=== PATIENT | male | born 1960 | race Caucasian/White ===

== ENCOUNTER 2019-04-28 14:35 | Observation (INO) ==
[2019-04-28] MEDS ORDERED: NITROGLYCERIN SL PRN (14:55)
[2019-04-28] MEDS ORDERED: ASPIRIN EC PO ONE (14:55)
[2019-04-28 15:36] LABS: BASO# 0.13 X1000 (0.0-0.2); BASO% 0.7 % (0.0-0.8); EOS# 0.68 X1000 (0.0-0.7); EOS% 3.7 % (0.0-10.0); HEMATOCRIT 48.6 % (42.0-52.0); HEMOGLOBIN 16.5 g/dL (14.0-18.0); IMM GRAN# 0.04 X1000 (0.0-0.04); IMM GRAN% 0.2 % (0.0-0.5); LYMPH# 3.61 X1000 (1.2-3.4); LYMPH% 19.9 % (20.5-51.1); MCH 30.7 PG (27-31); MCV 90.5 FL (81-99); MONO# 2.94 X1000 (0.11-0.59); MONO% 16.2 % (1.7-9.3); MPV 9.9 FL (7.4-10.4); NEUT# 10.74 X1000 (1.4-6.5); NEUT% 59.3 % (42.2-75.2); PLT 470 X1000 (130-400); RBC 5.37 XMIL (4.7-6.1); RDW 15.6 % (11.5-14.5); WBC 18.14 X1000 (4.8-10.8)
[2019-04-28 15:38] LABS: INR 1.03; PROTIME 13.6 Seconds (11.0-16.0)
[2019-04-28 15:39] LABS: PTT 25.8 Seconds (22.3-41.8)
--- NOTE | 2019-04-28 15:47 | Diag Imaging Result Doc PS360 ---
EXAM: CHEST-1 VIEW HISTORY: cp TECHNIQUE: Single view COMPARISON: None. FINDINGS: The lungs are well expanded. The heart is not enlarged. The vessels are not distended. There are small basilar infiltrates. Tiny left pleural effusion. IMPRESSION: Small basilar infiltrates with a tiny left effusion Electronically signed by Miguel Ga 04/28/2019 3:45 PM
[2019-04-28 15:52] LABS: AGAP 14; ALB/GLOB RATIO 1.5; ALBUMIN 3.9 g/dL (3.5-5.0); ALKALINE PHOSPHATASE 92 U/L (32-122); BUN 14 mg/dL (8-22); CALCIUM 9.1 mg/dL (8.8-10.2); CHLORIDE 101 mmol/L (98-107); COSMO 283; ESTIMATED GFR > 60; GLUCOSE 90 mg/dL (70-104); GOT 18 U/L (10-34); GPT 23 U/L (10-44); POTASSIUM 3.1 mmol/L (3.5-5.1); SODIUM 142 mmol/L (136-145); TCO2 27 mmol/L (25-35); TOTAL BILIRUBIN 0.53 mg/dL (0.20-1.00); TOTAL PROTEIN 6.5 g/dL (6.3-8.3)
[2019-04-28] MEDS ORDERED: LEVAQUIN 500 MG/D5W 500 MG/100 ML IVPB IV ONE (16:23)
--- NOTE | 2019-04-28 16:37 | EKG Report ---
Test Performed on : 04/28/2019 2:38:59 PM Test Reason : cp Blood Pressure : / mmHG Vent. Rate : 066 BPM Atrial Rate : 066 BPM P-R Int : 188 ms QRS Dur : 094 ms QT Int : 410 ms P-R-T Axes : 028 -45 027 degrees QTc Int : 429 ms Normal sinus rhythm. Possible Left atrial enlargement Left anterior fascicular block Abnormal ECG No previous ECGs available Unconfirmed Result
[2019-04-28] MEDS ORDERED: TYLENOL PO PRN (16:57)
[2019-04-28] MEDS ORDERED: ZOFRAN IV PRN (16:57)
[2019-04-28] MEDS ORDERED: DUONEB (A & A) INH PRN (17:00)
[2019-04-28] MEDS ORDERED: NICODERM PATCH TD PRN (17:00)
[2019-04-28] MEDS ORDERED: LOVENOX SUBQ SCH (17:00)
--- NOTE | 2019-04-28 17:06 | PROVIDER DOCUMENTATION ---
This chart was entered by Jeanette Logan Scribe, acting as scribe for Jewel Navarrete MD. HPI-Chest Pain - General Chief Complaint: Chest Pain Stated Complaint: CHEST PAIN, RADIATES INTO (L) ARM Time Seen by Provider: 04/28/19 14:55 Source: patient Allergies/Adverse Reactions: Patient Allergies Allergy/AdvReac Type Severity Reaction Status Date / Time No Known Allergies Allergy Verified 04/28/19 15:05 Home Medications: Home Medication List Medication Instructions Recorded Confirmed Last Taken Type Valsartan 80 mg PO DAILY 04/28/19 04/28/19 Unknown History - History of Present Illness-CP Nature of Presenting Problem: 59yom presents to ED cc left side chest pain, pressure and left arm numbness since yesterday. Pt rates pain 410 and reports he went to [facility] and was advised to come to ED due to symptoms and b/p being elevated.Pt reports he has hx of HTN but stopped taking med b/c they made him feel weird. Pt b/p is 177/111 upon exam. Pt denies N/V/SOB. Location: reports: other (left side) Quality of Pain: reports: tightness Severity in ED: mild (10) Onset/Duration: 24 hours ago Timing: still present Context/Activities at Onset: reports: light activity Modifying Factors: improves with: nothing Associated Symptoms: reports: denies symptoms Nitro Today/Relief: no nitro taken today Aspirin Treatment Today: no aspirin today Prior Chest Pain/Cardiac Workup: reports: no prior chest pain Similar Symptoms Previously?: Yes Recently Seen Here or By Another Healthcare Provider: Yes (was seen at [facility] in ED) Review of Systems - Adult - REVIEW OF SYSTEMS - ADULT Constitutional: reports: see HPI. denies: chills, fever, fatique Eyes: reports: no symptoms reported Ears, Nose, Mouth & Throat: reports: no symptoms reported Cardiovascular: reports: see HPI, chest pain. denies: palpitations Respiratory: reports: see HPI. denies: shortness of breath Gastrointestinal: reports: see HPI. denies: diarrhea, nausea, vomiting Genitourinary: reports: no symptoms reported Musculoskeletal: reports: no symptoms reported Integumentary: reports: no symptoms reported Neurological: reports: see HPI, numbness (left arm) Psychiatric: reports: no symptoms reported Endocrine: reports: no symptoms reported Hematologic/Lymphatic: reports: no symptoms reported Allergic/Immunologic: reports: no symptoms reported All Other Systems: Reviewed and Negative Past History - Adult - PAST MEDICAL HISTORY-ADULT Review of Records: reports: Nursing Assessment Review, Medications Reviewed, Social history reviewed & non-contributory. Major Childhood Illnesses: reports: denies history Cardiovascular: reports: HTN, hyperlipidemia Respiratory: reports: denies history Gastrointestinal: reports: denies history Obstetrical/Gynecological: reports: denies history Genitourinary: reports: denies history Musculoskeletal: reports: denies history Neurological: reports: denies history Endocrine/Immune: reports: denies history Other Conditions: reports: denies history - IMMUNIZATION STATUS Childhood Immunizations: See Nurse Assessment Flu Vaccine: See Nurse Assessment - FAMILY HISTORY Family History: reviewed, not pertinent - SOCIAL HISTORY Smoking: cigarettes, greater than 1 pack/day Provider spent 3-5 mins advising pt. on dangers of tobacco.: Discussed manners to quit use, and f/u contacts for add'l counseling. Physical Exam-General - PHYSICAL EXAM-ADULT Initial Vital Signs Reviewed: Yes - CONSTITUTIONAL General Appearance: appears well, alert, no apparent distress. negative: anxious, combative - EYES Eyes: PERRL/EOMI, pink conjunctivae. negative: photophobia - HEAD, EARS, NOSE, MOUTH & THROAT HENMT: normocephalic/atraumatic, moist mucous membranes. negative: angioedema - NECK Neck: normal inspection - RESPIRATORY Respiratory: chest non-tender, lungs clear, normal breath sounds. negative: wheezing - CARDIOVASCULAR Cardiovascular: normal peripheral pulses, regular rate, rhythm, no edema. negative: bradycardia, tachycardia - GASTROINTESTINAL (ABDOMEN) Abdominal Exam: normal bowel sounds, non tender, soft. negative: rebound - MUSCULOSKELETAL Extremity: normal inspection. negative: deformity - SKIN Integumentary: normal color. negative: diaphoresis, jaundice - PSYCHIATRIC Psych/Mental Status: normal mood/affect, oriented x 3. negative: anxious, d isheveled - HEART Score HEART Score: History: Moderately Suspicious HEART Score: ECG: Non-Specific Repolarization Disturbance/LBBB/PM HEART Score: Age: 45-65 Years HEART Score: Risk Factors for Atherosclerotic Disease: 1 or 2 Risk Factors HEART Score: Troponin: < or = Normal Limit Total HEART Score:: 4 Progress - PLAN OF CARE/RESULTS Progress/Plan/Lab Results: Vital Signs - 8 hr 11/28/19 14:40 04/28/19 14:49 04/28/19 14:50 Temperature 98.4 F Pulse Rate 70 63 64 Respiratory Rate 20 18 20 Blood Pressure 171/100 177/111 O2 Sat by Pulse Oximetry 95 95 04/28/19 15:00 04/28/19 15:01 04/28/19 15:15 Temperature Pulse Rate 68 71 79 Respiratory Rate 18 19 23 Blood Pressure 162/110 O2 Sat by Pulse Oximetry 95 94 L 94 L 04/28/19 15:16 04/28/19 15:30 04/28/19 15:31 Temperature Pulse Rate 81 66 72 Respiratory Rate 21 21 21 Blood Pressure 160/102 155/93 O2 Sat by Pulse Oximetry 94 L 92 L 92 L 04/28/19 15:45 04/28/19 15:46 04/28/19 16:00 Temperature Pulse Rate 63 64 62 Respiratory Rate 23 22 17 Blood Pressure 154/98 O2 Sat by Pulse Oximetry 93 L 92 L 92 L 04/28/19 16:01 04/28/19 16:15 04/28/19 16:16 Temperature Pulse Rate 62 61 59 L Respiratory Rate 21 21 20 Blood Pressure 160/100 160/97 O2 Sat by Pulse Oximetry 92 L 93 L 93 L 04/28/19 16:30 04/28/19 16:31 04/28/19 16:45 Temperature Pulse Rate 63 62 59 L Respiratory Rate 20 21 16 Blood Pressure 182/107 O2 Sat by Pulse Oximetry 94 L 94 L 95 04/28/19 16:46 04/28/19 17:00 04/28/19 17:15 Temperature Pulse Rate 72 59 L 73 Respiratory Rate 18 24 16 Blood Pressure 172/102 O2 Sat by Pulse Oximetry 94 L 94 L 96 04/28/19 17:17 04/28/19 17:30 04/28/19 17:31 Temperature Pulse Rate 82 64 59 L Respiratory Rate 28 H 20 21 Blood Pressure 163/100 185/100 O2 Sat by Pulse Oximetry 96 95 94 L 04/28/19 18:01 Temperature Pulse Rate 63 Respiratory Rate 14 Blood Pressure 188/101 O2 Sat by Pulse Oximetry 95 Laboratory Results - last 24 hr 04/28/19 04/28/19 04/28/19 15:24 15:24 15:24 WBC 18.14 H RBC 5.37 Hgb 16.5 Hct 48.6 MCV 90.5 MCH 30.7 MCHC 34.0 RDW Std Deviation 15.6 H Plt Count 470 H MPV 9.9 Immature Gran % (Auto) 0.2 Neut % (Auto) 59.3 Lymph % (Auto) 19.9 L Marion % (Auto) 16.2 H Eos % (Auto) 3.7 Baso % (Auto) 0.7 Immature Gran # (Auto) 0.04 Neut # (Auto) 10.74 H Lymph # (Auto) 3.61 H Marion # (Auto) 2.94 H Eos # (Auto) 0.68 Baso # (Auto) 0.13 PT INR PTT (Actin FS) Sodium 142 Potassium 3.1 L Chloride 101 Carbon Dioxide 27 Anion Gap 14 BUN 14 Creatinine 1.0 Estimated GFR/1.73 m2 > 60 BUN/Creatinine Ratio 14 Glucose 90 Calculated Osmolality 283 Calcium 9.1 Total Bilirubin 0.53 AST 18 ALT 23 Alkaline Phosphatase 92 Troponin T Mhg-W-Sudcnismkxa Pept 207 H Total Protein 6.5 Albumin 3.9 Globulin 2.6 Albumin/Globulin Ratio 1.5 Plasma Lactate 04/28/19 04/28/19 04/28/19 15:24 15:24 17:07 WBC RBC Hgb Hct MCV MCH MCHC RDW Std Deviation Plt Count MPV Immature Gran % (Auto) Neut % (Auto) Lymph % (Auto) Marion % (Auto) Eos % (Auto) Baso % (Auto) Immature Gran # (Auto) Neut # (Auto) Lymph # (Auto) Marion # (Auto) Eos # (Auto) Baso # (Auto) PT 13.6 INR 1.03 PTT (Actin FS) 25.8 Sodium Potassium Chloride Carbon Dioxide Anion Gap BUN Creatinine Estimated GFR/1.73 m2 BUN/Creatinine Ratio Glucose Calculated Osmolality Calcium Total Bilirubin AST ALT Alkaline Phosphatase Troponin T < 0.010 Zbh-B-Gpwjnurdfgt Pept Total Protein Albumin Globulin Albumin/Globulin Ratio Plasma Lactate 0.9 Orders Category Date Time Status Admit - [facility] Routine AdmDCTranf 04/28/19 16:57 Active Activity - Up with Assistance ORDERED Care 04/28/19 16:57 Active Intake and Output-Strict ORDERED Care 04/28/19 16:57 Active Vital Signs Order Q 8-HR ASSESS Care 04/28/19 16:57 Active Z-Document. for Tele Applied ORDERED Care 04/28/19 16:58 Active Heart Healthy Diet Diet 04/28/19 16:57 Active CHEST-1 VIEW [RAD] Stat Exams 04/28/19 14:49 Completed BASIC METABOLIC PANEL [CHEM] Routine Lab 04/29/19 06:00 Uncollected BLOOD CULTURE [BLDCUL] Stat Lab 04/28/19 17:06 Results CBC WITH DIFF [HEME] Routine Lab 04/29/19 06:00 Uncollected CBC WITH ELECTRONIC DIFF [HEME] Stat Lab 04/28/19 15:24 Completed CK PROFILE [SP CHEM] Q6H Lab 04/28/19 19:00 Ordered CK PROFILE [SP CHEM] Q6H Lab 04/29/19 01:00 Ordered COMPREHENSIVE METABOLIC PANEL [CHEM] Stat Lab 04/28/19 15:24 Completed LACTATE, PLASMA [CHEM] Stat Lab 04/28/19 17:07 Completed PRO B-NATRIURETIC PEPTIDE Stat Lab 04/28/19 15:24 Completed PROTIME WITH INR [COAG] Stat Lab 04/28/19 15:24 Completed PTT [COAG] Stat Lab 04/28/19 15:24 Completed TROPONIN T Q6H Lab 04/28/19 19:00 Ordered TROPONIN T Q6H Lab 04/29/19 01:00 Ordered TROPONIN T Stat Lab 04/28/19 15:24 Completed Acetaminophen [Tylenol] Med 04/28/19 16:57 Active 650 mg PO Q6H PRN PRN Albuterol 2.5MG/Ipratrop 0.5MG [Duoneb (A & A)] Med 04/28/19 17:00 Active 3 ml INH Q2H PRN PRN Albuterol 2.5MG/Ipratrop 0.5MG [Duoneb (A & A)] Med 04/28/19 19:30 Active 3 ml INH RTQ4H Aspirin EC Med 04/28/19 14:55 Discontinued 325 mg PO NOW ONE Azithromycin [Zithromax] Med 04/29/19 09:00 Active 500 mg PO DAILY CefTRIAXONE [Rocephin] 1 gm Med 04/28/19 17:30 Active 0.9% Sodium Chloride Inj [Ns] 50 ml IV Q24H Enoxaparin [Lovenox] Med 04/28/19 17:00 Active 40 mg SUBQ Q24H Hydralazine [Apresoline] Med 04/28/19 17:45 Active 10 mg IV Q6H PRN PRN Levofloxacin 500 mg/D5w [Levaquin 500 mg/D5w] Med 04/28/19 16:23 Discontinued 500 mg in 100 ml IV NOW Methylprednisolone Sod Succ [Solu-Medrol] Med 04/28/19 17:30 Active 60 mg IV Q8H Nicotine Patch [Nicoderm Patch] Med 04/28/19 17:00 Active 21 mg TD DAILY PRN PRN Nitroglycerin Sl [Nitroglycerin] Med 04/28/19 14:55 Active 0.4 mg SL Q5M PRN PRN Omeprazole [Prilosec] Med 04/29/19 07:00 Active 40 mg PO DAILY@0700 Ondansetron [Zofran] Med 04/28/19 16:57 Active 4 mg IV Q4H PRN PRN Valsartan [Diovan] Med 04/29/19 09:00 Active 80 mg PO DAILY Aerosol Treatments Routine Ot 04/28/19 17:00 Completed Incentive Spirometer Q4H [facility] 04/28/19 17:30 Completed Incentive Spirometer Q4H [facility] 04/28/19 21:30 Completed Incentive Spirometer Q4H Ot 04/29/19 01:30 Completed Incentive Spirometer Q4H Ot 04/29/19 05:30 Completed Incentive Spirometer Q4H Ot 04/29/19 09:30 Completed Incentive Spirometer Q4H Ot 04/29/19 13:30 Completed Incentive Spirometer Q4H Ot 04/29/19 17:30 Completed Incentive Spirometer Q4H Ot 04/29/19 21:30 Completed Incentive Spirometer Q4H Ot 04/30/19 01:30 Completed Incentive Spirometer Q4H Ot 04/30/19 05:30 Completed Incentive Spirometer Q4H Ot 04/30/19 09:30 Completed Incentive Spirometer Q4H Ot 04/30/19 13:30 Completed Incentive Spirometer Q4H Ot 04/30/19 17:30 Completed Incentive Spirometer Q4H Ot 04/30/19 21:30 Completed Incentive Spirometer Q4H Ot 05/01/19 01:30 Completed Incentive Spirometer Q4H Ot 05/01/19 05:30 Completed Incentive Spirometer Q4H Oth 05/01/19 09:30 Completed Incentive Spirometer Q4H Oth 05/01/19 13:30 Completed Incentive Spirometer Q4H Oth 05/01/19 17:30 Completed Telemetry [OM.EQ] Routine Oth 04/28/19 16:57 Active EKG [EKG] Routine Ther 04/29/19 00:00 Ordered EKG [EKG] Stat Ther 04/28/19 14:49 Draft Result Diagrams: 04/28/19 15:24 04/28/19 15:24 - EKG 1 Time of EKG reading by physician:: 14:38 EKG Read and Signed by:: Jewel Navarrete EKG Interpretation (*Must complete 3 of following elements*): Abnormal (possible atrial enlargement; left anterior fascicular block) Rate: 66 Rhythm: NSR CT Interval: normal ST Wave: normal - XRAY 1 XRAY: Bilateral XRAY Study: Chest Impression: See EMR Report (IMPRESSION: Small basilar infiltrates with a tiny left effusion Electronically signed by Miguel Ga 04/28/2019 3:45 PM) Departure - Departure Date of Disposition Decision: 04/28/19 Time of Disposition Decision: 18:37 DIAGNOSIS: Pneumonia, Chest pain, HTN (hypertension) Disposition: ADMITTED INPATIENT 09 Certified Medical Emergency: Emergent Condition: Fair Additional Instructions: ED Follow Up Instructions: You have been treated by a care provider in the Emergency Department. These ins tructions are being provided to you so you can have an understanding of how to care for yourself upon discharge. Upon discharge from the Emergency Department, you are responsible for making arrangements for follow-up care by a physician of your choice. Take all prescribed medications as directed. Return to the Emergency Department immediately for any new or worsening symptoms. You may call the Physician Referral phone number at [phone] to obtain a list of Physicians who are taking new patients. Referrals and Follow-Ups: None,PCP [Primary Care Provider] - Discharge Education: Steps to Quit Smoking, [id number] - Critical Care Note This patient required my direct & personal management of CC.: No Attestation - Physician/ AIDAN Attestation Patient care was provided by Advanced Practice Provider:: No The physician spent face to face time with patient:: Yes Advanced Practice Provider documentation review:: Supervising physician onsite and consulted in the evaluation and care of this patient. The physician did have a face to face encounter with the patient. This chart was documented by the indicated scribe, (Jeanette Logan, Stephanie) and accurately reflects the services I performed and decisions made by me, Jewel Navarrete MD, as attested by the provider's signature.
[2019-04-28] MEDS ORDERED: SOLU-MEDROL IV SCH (17:30)
[2019-04-28] MEDS ORDERED: ROCEPHIN 1 GM in NS 50 ML IV SCH (17:30)
[2019-04-28] MEDS ORDERED: APRESOLINE IV PRN (17:45)
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
[2019-04-28] MEDS ORDERED: DUONEB (A & A) INH SCH (19:30)
--- NOTE | 2019-04-29 05:12 | EKG Report ---
Test Performed on : 04/29/2019 04:36:21 AM Test Reason : CP Blood Pressure : / mmHG Vent. Rate : 059 BPM Atrial Rate : 059 BPM P-R Int : 204 ms QRS Dur : 092 ms QT Int : 474 ms P-R-T Axes : 053 -36 035 degrees QTc Int : 469 ms Sinus bradycardia. Possible Left atrial enlargement Left axis deviation Nonspecific ST abnormality Abnormal ECG When compared with ECG of 28-APR-2019 14:38, (Unconfirmed) No significant change was found Confirmed by Leonard JOHN, P.J.M ([id number]) on 04/29/2019 2:58:25 PM
[2019-04-29] MEDS ORDERED: APRESOLINE IV ONE (06:57)
[2019-04-29] MEDS ORDERED: PRILOSEC PO SCH (07:00)
[2019-04-29 07:05] LABS: BASO# 0.02 X1000 (0.0-0.2); BASO% 0.1 % (0.0-0.8); HEMATOCRIT 49.3 % (42.0-52.0); HEMOGLOBIN 16.7 g/dL (14.0-18.0); IMM GRAN# 0.04 X1000 (0.0-0.04); IMM GRAN% 0.3 % (0.0-0.5); LYMPH# 1.56 X1000 (1.2-3.4); LYMPH% 10.9 % (20.5-51.1); MCH 30.8 PG (27-31); MCHC 33.9 g/dL (33-37); MONO# 0.66 X1000 (0.11-0.59); MONO% 4.6 % (1.7-9.3); MPV 10.7 FL (7.4-10.4); NEUT% 84.1 % (42.2-75.2); PLT 511 X1000 (130-400); RBC 5.42 XMIL (4.7-6.1); RDW 15.5 % (11.5-14.5); WBC 14.28 X1000 (4.8-10.8)
[2019-04-29 07:30] LABS: AGAP 15; BUN 13 mg/dL (8-22); CALCIUM 9.1 mg/dL (8.8-10.2); CHLORIDE 99 mmol/L (98-107); COSMO 278; CREATININE 0.9 mg/dL (0.7-1.2); ESTIMATED GFR > 60; GLUCOSE 139 mg/dL (70-104); POTASSIUM 3.2 mmol/L (3.5-5.1); SODIUM 138 mmol/L (136-145); TCO2 24 mmol/L (25-35)
[2019-04-29] MEDS ORDERED: APRESOLINE IV PRN (07:42)
[2019-04-29] MEDS ORDERED: ROCEPHIN 1 GM in NS 50 ML IV SCH (07:45)
[2019-04-29] MEDS ORDERED: LEVAQUIN 750 MG/D5W 750 MG/150 ML IVPB IV SCH (07:45)
[2019-04-29] MEDS: DUONEB (A & A) INH SCH ×2 (07:47→11:05)
[2019-04-29] MEDS ORDERED: DIOVAN PO SCH ×2 (09:00)
[2019-04-29] MEDS ORDERED: ZITHROMAX PO SCH (09:00)
[2019-04-29 11:06] VITALS: BP 136/76
--- NOTE | 2019-04-29 15:15 | DISCHARGE SUMMARY ---
ADMISSION DATE: 04/28/2019 DISCHARGE DATE: 04/29/2019 DISCHARGE DIAGNOSES: 1. Bilateral pneumonia. 2. Hypokalemia. 3. Uncontrolled hypertension. PROCEDURES: Chest x-ray done on admission showed small basilar infiltrates with a tiny left effusion. HOSPITAL COURSE: Kyle Amaya a 59-year-old male, with past medical history of hypertension and tobacco abuse, who presented to the emergency department complaining of left chest pain radiating to the left axillary underarm area. The x-ray revealed bilateral pneumonia so he was admitted for that condition. The patient reports not feeling short of breath. Chest pain. He was not requiring any oxygen supplementation. He never required oxygen supplementation during all of his hospitalization. Today his white cell count was better from 18,000 on admission to 14,000. Today the patient requests to be discharged from the hospital because he lives in [place] and he has some personal issues there. He reports that he can return to any near emergency department hospital if needed. The patient is going to be discharged with oral antibiotics for 10 days. DISCHARGE PHYSICAL EXAMINATION: Vitals: Temperature 97.7 degrees, heart rate 92, respiratory 19, blood pressure 136/76, O2 saturation 95% on room air. General Examination: This is a 59-year-old male, lying in bed, in no acute distress. Cardiovascular: S1, S2 heard. No murmurs, gallops, or rubs. Regular rate and rhythm. Respiratory: Decreased breath sounds globally. No wheezing noted. Patient is not using any accessory muscles or having work of breathing. Abdomen: Soft. Nontender to palpation. Bowel sounds present. No organomegaly. Extremities: No clubbing, cyanosis or edema. Peripheral pulses present in both legs. Neurological: The patient is alert and oriented x3. Moves four extremities. DISCHARGE DISPOSITION: Home to self-care. LIST OF MEDICATIONS: 1. Valsartan 160 mg one tablet p.o. daily. 2. Levofloxacin 750 mg one tablet p.o. daily for 10 days. cc: Fred More MD
== END 2019-04-29 12:32 | disposition home or self-care (01) ==
LOC: ED 14:35 → INTOOBSV 20:19 → 3N 20:19
PROVIDERS: ATTEND Internal Medicine